=== PATIENT | male | born 2000 | race Two or more races ===

== ENCOUNTER 2025-01-17 12:32 | Emergency (ER) | payer MEDICAID, OTHER ==
[~2025-01-17] VITALS: Ht 165.1 cm; Wt 72.0 kg
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
[2025-01-17] MEDS: IBUPROFEN 800 MG TAB PO ONE (13:15)
[2025-01-17] MEDS: SODIUM CHLORIDE 0.9% 1,000 ML IV ONE (13:17)
[2025-01-17 13:26] LABS: Basophils # (auto) 0 10 ^3/uL (0-0.2); Basophils % (auto) 0.1 % (0.0-2.0); Eosinophils # (auto) 0.1 10 ^3/uL (0-0.8); Hemoglobin 14.6 g/dL (13.5-17.5)
[2025-01-17 13:30] LABS: Eosinophils % (auto) 0.5 % (0.0-7.0); Hematocrit 44.8 % (41.0-53.0); Lymphocytes # (auto) 0.7 10 ^3/uL (0.4-5.4); Lymphocytes % (auto) 3.6 % (10.0-50.0); Mean Corpuscular Hemoglobin 27.1 pg (28.0-32.0); Mean Corpuscular Hgb Conc. 32.6 g/dL (32.0-36.0); Mean Corpuscular Volume 83.2 fL (80.0-100.0); Monocytes # (auto) 0.9 10 ^3/uL (0-1.3); Neutrophils # (auto) 19.3 10 ^3/uL (1.6-8.6); Neutrophils % (auto) 91.8 % (37.0-80.0); Nucleated Red Blood Cells % 0.1 %; Platelet Count (auto) 255 10^3/uL (140-450); Red Blood Cells 5.39 10^6/uL (4.5-5.90); Red Cell Distribution Width 14.7 % (11.8-14.3)
[2025-01-17 13:37] LABS: Chloride 100 mmol/L (98-107); Potassium 3.6 mmol/L (3.5-5.1)
[2025-01-17 13:38] LABS: Anion Gap 7 (5-15); Calcium 9.6 mg/dL (8.7-10.4); Carbon Dioxide 27 mmol/L (20-31)
[2025-01-17 13:41] LABS: Sodium 134 mmol/L (136-145)
[2025-01-17] MEDS: cefTRIAXone 1GM/50ML D5W 50 ML IV ONE (13:41)
[2025-01-17 13:44] LABS: BUN/Creatinine Ratio 10.1 (10.0-20.0)
--- NOTE | 2025-01-17 13:44 | DVH ---
CLINICAL INDICATION: Possible injury with infection TECHNIQUE: XY R HAND 3 VIEW XRAY Comparison: None FINDINGS/IMPRESSION: : Prominent angulation of the distal 5th metacarpal likely represents a chronic fracture / deformity. Diffuse severe soft-tissue swelling most prominent at the dorsal lateral aspect of the hand.
[2025-01-17 13:45] LABS: Blood Urea Nitrogen 8 mg/dL (9-23); Glucose 108 mg/dL (74-106)
[2025-01-17] MEDS: VANCOMYCIN 1GM/250ML KIT 250 ML IV ONE (13:55)
[2025-01-17 14:07] LABS: Erythrocyte Sedimentation Rate 27 mm/hr (0-20)
[2025-01-17 19:20] VITALS: PULSE 98; RESP 18; O2SAT 98
[2025-01-17 19:25] VITALS: BP 115/65; PULSE 98; RESP 18; TEMP 98.2; O2SAT 98
== END 2025-01-17 19:32 | disposition short-term general hospital (02) ==
LOC: ER 12:32
DX: S62.326A Displaced fracture of shaft of fifth metacarpal bone, right hand, initial encounter for closed fracture (principal); B08.4 Enteroviral vesicular stomatitis with exanthem; F17.210 Nicotine dependence, cigarettes, uncomplicated; W19.XXXA Unspecified fall, initial encounter; Y93.89 Activity, other specified; Y92.89 Other specified places as the place of occurrence of the external cause; Y99.8 Other external cause status
CPT/HCPCS: 36415; 73130; 80048; 83605; 85025; 85652; 87040; 96365; 96368; 99285; J0696; J3370; J7030

== ENCOUNTER 2025-05-12 08:45 | Emergency (ER) | payer SELFPAY ==
[~2025-05-12] VITALS: Ht 165.1 cm; Wt 75.0 kg
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
[2025-05-12 11:08] VITALS: PULSE 78; RESP 19; O2SAT 98
[2025-05-12 12:58] VITALS: BP 113/75; PULSE 72; RESP 11; TEMP 97.1; O2SAT 97
== END 2025-05-12 13:32 | disposition short-term general hospital (02) ==
LOC: ER 08:45
DX: S42.001A Fracture of unspecified part of right clavicle, initial encounter for closed fracture (principal); S82.51XA Displaced fracture of medial malleolus of right tibia, initial encounter for closed fracture; S09.90XA Unspecified injury of head, initial encounter; F17.210 Nicotine dependence, cigarettes, uncomplicated; Z79.899 Other long term (current) drug therapy; V43.52XA Car driver injured in collision with other type car in traffic accident, initial encounter; Y93.89 Activity, other specified; Y92.89 Other specified places as the place of occurrence of the external cause; Y99.8 Other external cause status
CPT/HCPCS: 36415; 70450; 71045; 72170; 73030; 73590; 80320